=== PATIENT | female | born 1985 | race Two or more races ===

== ENCOUNTER 2020-05-15 15:25 | Emergency (ER) | payer MEDICAID, SELFPAY ==
[2020-05-15 16:12] VITALS: BP 110/67; PULSE 98; RESP 18; TEMP 37; O2SAT 94; BMI 22.8
[2020-05-15 17:22] LABS: Glucose Urine UA NEG (NEG); Leukocyte Esterase Urine NEG (NEG); Nitrite Urine NEG (NEG); Urine Blood NEG (NEG); Urine Ketones NEG (NEG); Urine Protein NEG (NEG-TRACE)
[2020-05-15 17:25] LABS: Appearance Urine CLEAR; Color Urine YELLOW; UPreg QC Valid YES; Urine Pregnancy NEGATIVE (NEGATIVE)
--- NOTE | 2020-05-15 18:51 | ED_ITS ---
HPI - Abdominal Pain General Chief Complaint: Back Pain/Injury Stated Complaint: kidney Pain? Time Seen by Provider: 05/15/20 20:03 Source: patient Mode of arrival: ambulatory Limitations: no limitations History of Present Illness HPI narrative: 35-year-old female treated for kidney infection by [facility] last week given cefdinir presents with bilateral flank pain and fatigue. She states that this pain is worse than when she started the medications, states that she is very tired, feels weak, and has intermittent fevers and chills. MD elicited complaint: flank pain Onset (ago): week(s) (2) Pain Consistency: constant Location: L flank and R flank Severity: moderate Quality: aching and dull Radiation: none Exacerbating factors: movement Relieving factors: nothing Context: recent antibiotic use Associated symptoms: fever and chills Related Data Previous Rx's Medication Instructions Recorded azithromycin [Zithromax TRI-FIONA] See Rx Instructions .ROUTE 05/15/20 .COMPLEX #6 tab dexamethasone 6 mg PO DAILY 10 Days #10 tab 05/15/20 ketorolac 10 mg PO TID PRN 5 Days tab 05/15/20 Allergies Allergy/AdvReac Type Severity Reaction Status Date / Time No Known Allergies Allergy Verified 05/15/20 16:11 Review of Systems Review of Systems Constitutional: positive Fever, positive Chills, positive fatigue, positive Malaise ENT/Mouth: No sore throat, no runny nose Eyes: No Discharge Cardiovascular: No Chest Pain, No SOB Respiratory: No Cough, No Sputum, No Wheezing, No Smoke Exposure, No Dyspnea Gastrointestinal: No Nausea, No Vomiting, No Diarrhea Genitourinary: no irregular bleeding, No Dysuria, No Urinary Frequency, No Hematuria, No Urinary Incontinence, No Urgency, positive bilateral Flank Pain, Musculoskeletal: positive Myalgia Skin: No rash Neuro: No Headache Yes all other systems are reviewed and are negative Physical Exam Vital Signs: Vital Signs: Last Vital Signs Temp 98.6 F 05/15/20 16:12 Pulse 98 05/15/20 16:12 Resp 18 05/15/20 16:12 BP 110/67 05/15/20 16:12 Pulse Ox 94 05/15/20 16:12 Body Mass Index 22.8 Appearance: Alert. Oriented X3. Moderate distress. Eyes: Pupils equal, round and reactive to light. ENT: Pharynx normal. Neck: Normal inspection. Neck supple. CVS: Normal heart rate and rhythm. Pulses normal. Respiratory: No respiratory distress. Breath sounds normal. Abdomen: Soft and diffusely tender, bilateral CVA tenderness Skin: Skin warm and dry. Normal skin color. Normal skin turgor. Extremities: No lower extremity edema. Neuro: No motor deficit. No sensory deficit. Course Course Course Narrative: 35-year-old female with no significant past medical history presents with bilateral flank pain, fatigue, intermittent fevers and chills. Was seen at [facility] last week and given cefdinir for a suspected kidney infection. She states that she did not ever feel well after taking the medica tion and that symptoms have gotten progressively worse over the past week. She has a few days left of her antibiotics. Plan of care is for CBC, Chem 7, lactic, cultures, CT scan of abdomen and pelvi s. CBC and Chem 7 lactic acid are unremarkable. CT scan of abdomen and pelvis indicates normal abdomen and pelvis however shows bilateral lung infiltrates consistent with COVID-19. Patient is afebrile, maintaining O2 saturation at 100% on room air. We will give azithromycin as she has been sick for several weeks and dexamethasone. Patient verbalized understanding of and agrees to plan of care discharge home. MDM - Abdominal Pain Differential Diagnosis Differential diagnosis: Likely abdominal pain, acute appendicitis, calculus of kidney, diverticulitis, gastroenteritis, ovarian cyst and renal colic Medical Records Attestation: I reviewed the patient's medical records. Lab Data Attestation: I reviewed the patient's lab results. Result diagrams: 05/15/20 19:19 05/15/20 19:19 Labs: Lab Results 05/15/20 05/15/20 05/15/20 Range/Units 17:04 19:19 19:19 WBC 7.4 (4.8-10.8) X10*3/uL RBC 4.29 (4.20-5.50) X10*6/uL Hgb 12.9 (12.0-16.0) g/dl Hct 38.3 (37-47) % MCV 89.3 (80-98) fL MCH 30.1 (27.0-33.0) pg MCHC 33.7 (31.0-35.0) g/dl RDW 12.0 (11.0-16.0) % Plt Count 447 H (160-400) X10*3/uL MPV 9.0 L (9.4-12.3) fL Immature Gran % (Auto) 0.1 (0.0-0.4) % Neut % (Auto) 32.2 L (45-73) % Lymph % (Auto) 49.7 H (20-40) % Crosby % (Auto) 11.0 (2-11) % Eos % (Auto) 6.3 H (0-4) % Baso % (Auto) 0.7 (0-2) % Lymph # (Auto) 3.7 (1.2-4.9) X10*3/uL Crosby # (Auto) 0.8 (0.1-1.2) X10*3/uL Eos # (Auto) 0.5 H (0.0-0.4) X10*3/uL Baso # (Auto) 0.1 (0.0-0.2) X10*3/uL Abs Immat Gran (auto) 0.01 (0.00-0.03) X10*3/uL Absolute Neuts (auto) 2.4 (2.0-8.3) X10*3/uL Absolute Nucleated RBC 0.000 (0.0-0.012) X10*3/uL Nucleated RBC % (auto) 0.0 (0.0-0.2) /100WBC PT 14.4 H (10.8-13.0) SEC INR 1.2 H (0.9-1.1) APTT 36.3 (24.1-38.0) SEC Sodium (135-145) mmol/L Potassium (3.3-5.1) mmol/l Chloride (96-108) mmol/L Carbon Dioxide (22-29) mmol/L Anion Gap (12-20) BUN (9-16) mg/dL Creatinine (0.5-1.4) mg/dL Estim Creat Clear Calc Estimated GFR Random Glucose (60-115) mg/dL Lactic Acid (0.5-2.0) mmol/L Calcium (8.4-10.2) mg/dL Magnesium (1.6-2.6) mg/dL Total Bilirubin (0.0-1.0) mg/dL Direct Bilirubin (0.0-0.5) mg/dL AST (5-31) U/L ALT (0-31) U/L Alkaline Phosphatase (39-117) U/L Total Protein (6.5-8.0) g/dL Albumin (3.5-5.0) g/dL Lipase (8-78) U/L Urine Color YELLOW Urine Appearance CLEAR Urine pH 7.0 (5.0-8.0) Ur Specific Lupton 1.020 (1.005-1.025) Urine Protein NEG (NEG-TRACE) MG/DL Urine Glucose (UA) NEG (NEG) MG/DL Urine Ketones NEG (NEG) MG/DL Urine Blood NEG (NEG) Urine Nitrite NEG (NEG) Ur Leukocyte Esterase NEG (NEG) Urine Test NEGATIVE (NEGATIVE) 05/15/20 05/15/20 Range/Units 19:19 19:19 WBC (4.8-10.8) X10*3/uL RBC (4.20-5.50) X10*6/uL Hgb (12.0-16.0) g/dl Hct (37-47) % MCV (80-98) fL MCH (27.0-33.0) pg MCHC (31.0-35.0) g/dl RDW (11.0-16.0) % Plt Count (160-400) X10*3/uL MPV (9.4-12.3) fL Immature Gran % (Auto) (0.0-0.4) % Neut % (Auto) (45-73) % Lymph % (Auto) (20-40) % Crosby % (Auto) (2-11) % Eos % (Auto) (0-4) % Baso % (Auto) (0-2) % Lymph # (Auto) (1.2-4.9) X10*3/uL Crosby # (Auto) (0.1-1.2) X10*3/uL Eos # (Auto) (0.0-0.4) X10*3/uL Baso # (Auto) (0.0-0.2) X10*3/uL Abs Immat Gran (auto) (0.00-0.03) X10*3/uL Absolute Neuts (auto) (2.0-8.3) X10*3/uL Absolute Nucleated RBC (0.0-0.012) X10*3/uL Nucleated RBC % (auto) (0.0-0.2) /100WBC PT (10.8-13.0) SEC INR (0.9-1.1) APTT (24.1-38.0) SEC Sodium 139 (135-145) mmol/L Potassium 4.3 (3.3-5.1) mmol/l Chloride 104 (96-108) mmol/L Carbon Dioxide 27 (22-29) mmol/L Anion Gap 12 (12-20) BUN 10 (9-16) mg/dL Creatinine 0.82 (0.5-1.4) mg/dL Estim Creat Clear Calc 98.4 Estimated GFR > 60 Random Glucose 101 (60-115) mg/dL Lactic Acid 0.7 (0.5-2.0) mmol/L Calcium 9.1 (8.4-10.2) mg/dL Magnesium 2.4 (1.6-2.6) mg/dL Total Bilirubin 0.7 (0.0-1.0) mg/dL Direct Bilirubin 0.3 (0.0-0.5) mg/dL AST 27 (5-31) U/L ALT 31 (0-31) U/L Alkaline Phosphatase 78 (39-117) U/L Total Protein 7.1 (6.5-8.0) g/dL Albumin 4.6 (3.5-5.0) g/dL Lipase 22 (8-78) U/L Urine Color Urine Appearance Urine pH (5.0-8.0) Ur Specific Lupton (1.005-1.025) Urine Protein (NEG-TRACE) MG/DL Urine Glucose (UA) (NEG) MG/DL Urine Ketones (NEG) MG/DL Urine Blood (NEG) Urine Nitrite (NEG) Ur Leukocyte Esterase (NEG) Urine Test (NEGATIVE) Imaging Data CT scan - abdomen: Attestation: I personally reviewed and interpreted this imaging study as lna gonzalez: Radiologist's impression: EXAMINATION: CT ABDOMEN AND PELVIS WITHOUT CONTRAST CLINICAL INFORMATION: Left flank pain COMPARISON: Pelvic ultrasound 10/27/2012 TECHNIQUE: Multidetector volumetric imaging was performed from the superior aspect of the liver through the pubic symphysis. Sagittal and coronal reformatted images were obtained on the technologist's workstation. This CT examination was performed using dose optimization techniques as appropriate, variously including the following: *Automated exposure control *Adjustment of mA and/or kV according to patient size (this includes techniques or standardized protocols for targeted exams where dose is matched to indication/reason for exam; i.e. extremities or head) *Use of iterative reconstruction technique DLP: 485 mGy-cm FINDINGS: LUNG BASES: Some minimal peripheral groundglass infiltrates are present at both lung bases. LIVER, GALLBLADDER, AND BILIARY TREE: The liver is normal in size, shape, and attenuation. No focal hepatic lesion or biliary ductal dilatation is present. The gallbladder is unremarkable with no evidence of radiopaque gallstones, gallbladder wall thickening, or obvious pericholecystic inflammatory changes. PANCREAS: Unremarkable. SPLEEN: Unremarkable. ADRENAL GLANDS: Unremarkable. KIDNEYS AND URETERS: The kidneys are normal in size, shape, and attenuation. No hydronephrosis, hydroureter, or calculi seen. No perinephric stranding. BLADDER: Only partially filled but unremarkable GASTROINTESTINAL TRACT: The small and large bowel are unremarkable. The appendix is unremarkable. ABDOMINAL WALL: No significant hernia is appreciated. LYMPH NODES: No retroperitoneal lymphadenopathy is seen. Multiple small lymph nodes are seen in the in the root of the mesentery near the cecum the largest measuring 1.3 x 1.2 x 0.7 cm. Bilateral small inguinal nodes are present. VASCULAR: Unremarkable. PELVIC VISCERA: An anteverted uterus is present. Some calcifications are seen in the cervix and lower uterine segment which could be secondary to fibroids or scarring from prior IUD. OSSEOUS STRUCTURES: Unremarkable. CT/CT abdomen pelvis wo con IMPRESSION: 1. A cause for the patient's left flank pain has not been found. 2. Peripheral groundglass infiltrates are seen at both lung bases. This can be seen with Covid 19 infection. Discharge Plan Discharge Clinical Impression: Flank pain, COVID-19 Patient Disposition: Home, Self-Care Instructions: Flank Pain (ED), COVID-19 (Coronavirus Disease 2019) (ED) Additional Instructions: You were evaluated for flank pain. CT scan of the abdomen pelvis indicate ground-glass opacities in bilateral lungs consistent with COVID-19. We prescribed dexamethasone, please take this for 10 days. We prescribed azithromycin for bacterial pneumonia. Please note that antibiotics do not work against viruses, we are giving you this medication to prevent bacterial pneumonia as you have had this illness for several weeks. Please continue the medications given to you by your prior providers. Maintain social isolation per State and Federal guidelines. It is your responsibility to maintain these guidelines. Thank you for choosing this emergency department for evaluation. Please follow-up with primary care physician as needed. Return to the emergency d epartment for any new, concerning, or worsening symptoms. Prescriptions: New dexamethasone 6 mg tablet 6 mg PO DAILY 10 Days Qty: 10 RF: 0 azithromycin [Zithromax TRI-FIONA] 500 mg tablet See Rx Instructions .ROUTE .COMPLEX Qty: 6 RF: 0 ketorolac 10 mg tablet 10 mg PO TID PRN (Reason: pain) 5 Days RF: 0 Interventions: ED Discharge Assessment Last Done: 05/15/20 21:29 Discharge Date/Time: 05/15/20 21:34 [facility] Past Medical History Attestation statement: The following information was validated with the patient. Surgical History No history of previous surgery Family History Family History Mother No problems noted. Father No problems noted. Social History Social History Alcohol intake: never Smoking Status: Never smoker Use of substances other than those prescribed or required for medical reasons: No Advance Directives: No Advance Directives Information Provided: No
--- NOTE | 2020-05-15 18:52 | ECG_ITS ---
Test Reason : left flank pain Blood Pressure : / mmHG Vent. Rate : 073 BPM Atrial Rate : 073 BPM P-R Int : 152 ms QRS Dur : 080 ms QT Int : 390 ms P-R-T Axes : 038 014 017 degrees QTc Int : 429 ms Normal sinus rhythm Nonspecific T wave abnormality Abnormal ECG No previous ECGs available Referred By: Kelsea Reddy Electronically Signed By:Blayne Ya
[2020-05-15 19:27] LABS: MANUAL DIFF FLAG NO
[2020-05-15] MEDS: ondansetron HCL 4 MG/2 ML VIAL IVPUSH (19:27)
[2020-05-15] MEDS: 0.9 % Sodium Chloride 1,000 ML 999 ML IVCONT (19:27)
[2020-05-15] MEDS: Morphine Sulfate 4 MG/ML CARTRIDGE IVPUSH (19:27)
[2020-05-15 19:33] LABS: Basophils Absolute Auto 0.1 X10*3/uL (0.0-0.2); Basophils Percent Auto 0.7 % (0-2); Eosinophils Absolute Auto 0.5 X10*3/uL (0.0-0.4); Eosinophils Percent Auto 6.3 % (0-4); Hematocrit 38.3 % (37-47); Hemoglobin 12.9 g/dl (12.0-16.0); Imm Gran Abs Auto 0.01 X10*3/uL (0.00-0.03); Imm Gran Pct Auto 0.1 % (0.0-0.4); Lymphocytes Absolute Auto 3.7 X10*3/uL (1.2-4.9); Lymphocytes Percent Auto 49.7 % (20-40); Mean Corpuscular HGB Conc 33.7 g/dl (31.0-35.0); Mean Corpuscular Hemoglobin 30.1 pg (27.0-33.0); Mean Corpuscular Volume 89.3 fL (80-98); Monocytes Absolute Auto 0.8 X10*3/uL (0.1-1.2); Neutrophils Absolute Auto 2.4 X10*3/uL (2.0-8.3); Neutrophils Percent Auto 32.2 % (45-73); Platelet Count 447 X10*3/uL (160-400); Red Blood Count 4.29 X10*6/uL (4.20-5.50); White Blood Count 7.4 X10*3/uL (4.8-10.8)
[2020-05-15 19:34] LABS: INTERNATIONAL NORM RATIO 1.2 (0.9-1.1); Prothrombin Time 14.4 SEC (10.8-13.0)
[2020-05-15 19:37] LABS: Partial Thromboplastin Time 36.3 SEC (24.1-38.0)
[2020-05-15 19:46] LABS: Lactic Acid 0.7 mmol/L (0.5-2.0)
[2020-05-15 19:50] LABS: Alanine Aminotransferase 31 U/L (0-31); Albumin Level 4.6 g/dL (3.5-5.0); Alkaline Phosphatase 78 U/L (39-117); Anion Gap 12 (12-20); Aspartate Amino Transferase 27 U/L (5-31); Bilirubin Direct 0.3 mg/dL (0.0-0.5); Bilirubin Total 0.7 mg/dL (0.0-1.0); Blood Urea Nitrogen 10 mg/dL (9-16); Calcium 9.1 mg/dL (8.4-10.2); Carbon Dioxide 27 mmol/L (22-29); Chloride 104 mmol/L (96-108); Creatinine Clr Calc Pharmacy 98.4; Estimated Glomerular Filt Rate > 60; Glucose Random 101 mg/dL (60-115); Lipase 22 U/L (8-78); Magnesium 2.4 mg/dL (1.6-2.6); Potassium 4.3 mmol/l (3.3-5.1); Sodium 139 mmol/L (135-145); Total Protein 7.1 g/dL (6.5-8.0)
[2020-05-15] MEDS: Ketorolac Tromethamine 30 MG/ML VIAL IVPUSH (20:15)
[2020-05-15] MEDS: Azithromycin 500 MG TABLET PO (21:28)
[2020-05-15] MEDS: dexAMETHasone 6 MG TABLET PO (21:28)
== END 2020-05-15 21:34 | disposition home or self-care (01) ==
PROVIDERS: Nurse Practitioner Family; Emergency Provider Emergency Medicine; PCP Internal Medicine
DX: U07.1 COVID-19 (principal); R10.9 Unspecified abdominal pain
CPT/HCPCS: 36415; 74176; 80048; 80076; 81003; 81025; 83605; 83690; 83735; 85025; 85610; 85730; 87040; 93005; 96361; 96374; 96375; 99284; J1885; J2270; J2405; J8540

== ENCOUNTER 2020-05-31 15:40 | Outpatient (REF) | payer OTHER, SELFPAY ==
--- NOTE | 2020-05-31 15:47 | XR_ITS ---
EXAMINATION: XR CHEST CLINICAL INFORMATION: Covid 19 infection COMPARISON: Previous chest x-ray July 2014 TECHNIQUE: 2 views of the chest were obtained. FINDINGS: No significant abnormality is noted involving the heart, lungs, mediastinum, bony thorax or soft tissues. XR/XR chest 2V IMPRESSION: Unremarkable examination.
== END 2020-05-31 15:41 | disposition home or self-care (01) ==
LOC: HO.XRAY 15:40
PROVIDERS: Visit Provider Internal Medicine
DX: U07.1 COVID-19 (principal)
CPT/HCPCS: 71046

== ENCOUNTER → 2020-09-07 11:00 | Outpatient (BNVA) | payer OTHER, SELFPAY | PROVIDERS: PCP Internal Medicine; Visit Provider Advanced Practice Midwife ==

== ENCOUNTER → 2021-12-10 11:11 | Outpatient (BNVA) | payer OTHER, SELFPAY | PROVIDERS: Visit Provider Nurse Practitioner Psychiatric/Mental Health | DX: Z51.81 Encounter for therapeutic drug level monitoring (principal); F11.20 Opioid dependence, uncomplicated | CPT/HCPCS: 80305; 99212 ==

== ENCOUNTER → 2021-12-27 15:41 | Outpatient (BNVA) | payer OTHER, SELFPAY | PROVIDERS: PCP Internal Medicine; Visit Provider Nurse Practitioner Psychiatric/Mental Health | DX: Z51.81 Encounter for therapeutic drug level monitoring (principal); F11.20 Opioid dependence, uncomplicated | CPT/HCPCS: 80305; 80307; 80364; 80365; 99212 ==

== ENCOUNTER 2021-12-27 17:15 | Outpatient (REF) | payer OTHER, SELFPAY ==
[2021-12-27 17:43] LABS: Fentanyl, urine POSITIVE (Not Detect)
[2022-01-03 08:21] LABS: Codeine, Ur NEGATIVE; Hydrocodone, Ur NEGATIVE; Hydromorphone, Ur NEGATIVE; Morphine, Ur NEGATIVE; Oxycodone, Ur NEGATIVE
[2022-01-03 08:22] LABS: Norhydrocodone, Ur NEGATIVE; Noroxycodone, Ur NEGATIVE; Oxymorphone, Ur NEGATIVE
== END 2021-12-27 17:16 | disposition home or self-care (01) ==
LOC: HO.LNP 17:15
PROVIDERS: Visit Provider Nurse Practitioner Psychiatric/Mental Health
DX: Z13.89 Encounter for screening for other disorder (principal)
CPT/HCPCS: 80307; 80364; 80365

== ENCOUNTER → 2022-01-07 15:59 | Outpatient (BNVA) | payer OTHER, SELFPAY | PROVIDERS: PCP Internal Medicine; Visit Provider Nurse Practitioner Psychiatric/Mental Health | DX: Z51.81 Encounter for therapeutic drug level monitoring (principal); F11.20 Opioid dependence, uncomplicated | CPT/HCPCS: 80305; 99212 ==

== ENCOUNTER → 2022-01-15 15:25 | Outpatient (BNVA) | payer OTHER, SELFPAY | PROVIDERS: PCP Internal Medicine; Visit Provider Nurse Practitioner Psychiatric/Mental Health | DX: F11.20 Opioid dependence, uncomplicated (principal); Z51.81 Encounter for therapeutic drug level monitoring; Z79.899 Other long term (current) drug therapy | CPT/HCPCS: 80305; 99212 ==

== ENCOUNTER 2022-01-31 15:43 | Outpatient (REF) | payer OTHER, SELFPAY ==
[2022-02-06 07:35] LABS: Naloxone NEGATIVE
[2022-02-06 07:39] LABS: Buprenorphine 12; Norbuprenorphine 76
== END 2022-01-31 15:44 | disposition home or self-care (01) ==
LOC: HO.LAB 15:43
PROVIDERS: Visit Provider Nurse Practitioner Psychiatric/Mental Health
DX: F11.20 Opioid dependence, uncomplicated (principal); Z51.81 Encounter for therapeutic drug level monitoring; Z79.899 Other long term (current) drug therapy
CPT/HCPCS: 80305; 80348; 80362; 99212

== ENCOUNTER → 2022-02-07 16:02 | Outpatient (BNVA) | payer OTHER, SELFPAY | PROVIDERS: PCP Internal Medicine; Visit Provider Nurse Practitioner Psychiatric/Mental Health | DX: Z51.81 Encounter for therapeutic drug level monitoring (principal); F11.20 Opioid dependence, uncomplicated | CPT/HCPCS: 80305; 99212 ==

== ENCOUNTER → 2022-02-18 15:25 | Outpatient (BNVA) | payer OTHER, SELFPAY | PROVIDERS: PCP Internal Medicine; Visit Provider Nurse Practitioner Psychiatric/Mental Health | DX: F11.20 Opioid dependence, uncomplicated (principal); Z51.81 Encounter for therapeutic drug level monitoring; Z79.899 Other long term (current) drug therapy | CPT/HCPCS: 80305; 99212 ==

== ENCOUNTER 2022-02-26 15:33 | Outpatient (REF) | payer OTHER, SELFPAY ==
[2022-02-26 15:43] LABS: MANUAL DIFF FLAG NO
[2022-02-26 16:51] LABS: Basophils Absolute Auto 0.1 X10*3/uL (0.0-0.2); Eosinophils Absolute Auto 0.9 X10*3/uL (0.0-0.4); Eosinophils Percent Auto 9.9 % (0-4); Hematocrit 32.4 % (37.0-47.0); Hemoglobin 10.8 g/dl (12.0-16.0); Imm Gran Abs Auto 0.01 X10*3/uL (0.00-0.03); Imm Gran Pct Auto 0.1 % (0.0-0.4); Lymphocytes Absolute Auto 3.2 X10*3/uL (1.2-4.9); Lymphocytes Percent Auto 36.2 % (20-40); Mean Corpuscular HGB Conc 33.3 g/dl (31.0-35.0); Mean Corpuscular Hemoglobin 28.6 pg (27.0-33.0); Mean Corpuscular Volume 85.9 fL (80.0-98.0); Monocytes Absolute Auto 0.7 X10*3/uL (0.1-1.2); Monocytes Percent Auto 7.9 % (2-11); Neutrophils Absolute Auto 3.9 x10*3/uL (2.0-8.3); Neutrophils Percent Auto 44.9 % (45-73); Platelet Count 364 X10*3/uL (160-400); Red Blood Count 3.77 X10*6/uL (4.20-5.50); Red Cell Distribution Width 13.5 % (11.0-16.0); White Blood Count 8.8 X10*3/uL (4.8-10.8)
[2022-02-26 17:27] LABS: Albumin Level 4.2 g/dL (3.5-5.0); Anion Gap 14 (12-20); Bilirubin Direct < 0.2 mg/dL (0.0-0.5); Bilirubin Total 0.5 mg/dL (0.0-1.0); Blood Urea Nitrogen 10 mg/dL (9-16); Carbon Dioxide 23 mmol/L (22-29); Chloride 106 mmol/L (96-108); Cholesterol 206 mg/dL; Estimated Glomerular Filt Rate > 60; Glucose Fasting 91 mg/dL (60-99); HDL Cholesterol 42 mg/dL; LDL Cholesterol Calculated 144 mg/dl; Potassium 4.3 mmol/L (3.3-5.1); Sodium 139 mmol/L (135-145); Total Protein 6.5 g/dL (6.5-8.0); Triglycerides 104 mg/dL
[2022-02-26 17:41] LABS: Alanine Aminotransferase 75 U/L (0-31); Alkaline Phosphatase 69 U/L (39-117); Aspartate Amino Transferase 197 U/L (5-31)
[2022-02-26 17:46] LABS: Thyroid Stimulating Hormone 1.69 uIU/mL (0.32-4.0)
[2022-02-27 08:35] LABS: HBS Num1 270.24 mIU/mL (0-7.99); HBc Num1 0.12 S/CO (0.00-0.79); HBsAGNum1 0.18 S/CO (0.00-0.99); HIV AB/AG Nonreactive (Nonreactive); HIV Num 1 0.06 S/CO (0.00-0.99); Hepatitis B Core Antibody Nonreactive (Nonreactive); Hepatitis B Surface Antigen Negative (Negative); ~HepC Num1 0.08 S/CO (0.00-0.79); ~Hepatitis B Surface Antibody REACTIVE (Nonreactive); ~Hepatitis C Antibody Nonreactive (Nonreactive)
[2022-02-28 07:48] LABS: Hepatitis A Antibody IgM 0.17 Index (0-0.79); ~Hepatitis A Antibody IgM Nonreactive (Nonreactive)
== END 2022-02-26 15:34 | disposition home or self-care (01) ==
LOC: HO.LAB 15:33
PROVIDERS: Internal Medicine; Nurse Practitioner Psychiatric/Mental Health; Visit Provider Nurse Practitioner Psychiatric/Mental Health
DX: Z00.00 Encounter for general adult medical examination without abnormal findings (principal); Z11.4 Encounter for screening for human immunodeficiency virus [HIV]; Z13.0 Encounter for screening for diseases of the blood and blood-forming organs and certain disorders involving the immune mechanism; F11.90 Opioid use, unspecified, uncomplicated; Z79.899 Other long term (current) drug therapy
CPT/HCPCS: 36415; 80053; 80061; 80076; 82248; 84443; 85025; 86704; 86706; 86709; 86803; 87340; 87389

== ENCOUNTER 2022-02-28 13:37 | Outpatient (REF) | payer OTHER, SELFPAY ==
[2022-03-10 08:04] LABS: Buprenorphine 88; Naloxone 215; Norbuprenorphine 434
== END 2022-02-28 13:38 | disposition home or self-care (01) ==
LOC: HO.LAB 13:37
PROVIDERS: PCP Internal Medicine; Visit Provider Nurse Practitioner Psychiatric/Mental Health
DX: F11.20 Opioid dependence, uncomplicated (principal); Z51.81 Encounter for therapeutic drug level monitoring
CPT/HCPCS: 80305; 80348; 80362; 99212

== ENCOUNTER 2022-03-12 15:13 | Outpatient (REF) | payer OTHER, SELFPAY ==
[2022-03-12 16:12] LABS: Alanine Aminotransferase 17 U/L (0-31); Albumin Level 4.1 g/dL (3.5-5.0); Alkaline Phosphatase 72 U/L (39-117); Aspartate Amino Transferase 18 U/L (5-31); Bilirubin Direct 0.2 mg/dL (0.0-0.5); Bilirubin Total 0.5 mg/dL (0.0-1.0); Total Protein 6.3 g/dL (6.5-8.0)
== END 2022-03-12 15:14 | disposition home or self-care (01) ==
LOC: HO.LAB 15:13
PROVIDERS: Visit Provider Nurse Practitioner Psychiatric/Mental Health
DX: F11.20 Opioid dependence, uncomplicated (principal); Z51.81 Encounter for therapeutic drug level monitoring; Z79.899 Other long term (current) drug therapy
CPT/HCPCS: 36415; 80076; 80305; 99212

== ENCOUNTER → 2022-04-07 14:15 | Outpatient (BNVA) | payer OTHER, SELFPAY | PROVIDERS: PCP Internal Medicine; Visit Provider Nurse Practitioner Psychiatric/Mental Health | DX: Z51.81 Encounter for therapeutic drug level monitoring (principal); F11.20 Opioid dependence, uncomplicated; Z32.02 Encounter for pregnancy test, result negative | CPT/HCPCS: 80305; 81025; 96372; 99212 ==

== ENCOUNTER 2022-07-24 15:18 | Outpatient (REF) | payer OTHER, SELFPAY ==
[2022-07-25 11:59] LABS: CT PCR NOT DETECTED (Not Detect.); NG PCR NOT DETECTED (Not Detect.)
== END 2022-07-24 15:19 | disposition home or self-care (01) ==
LOC: HO.LAB 15:18
PROVIDERS: PCP Internal Medicine; Visit Provider Advanced Practice Midwife
DX: Z01.419 Encounter for gynecological examination (general) (routine) without abnormal findings (principal); R30.0 Dysuria; Z20.2 Contact with and (suspected) exposure to infections with a predominantly sexual mode of transmission
CPT/HCPCS: 0353U; 81003; 81025; 87086; 87088; 87186

== ENCOUNTER 2022-07-24 15:53 | Outpatient (REF) | payer OTHER, SELFPAY ==
[2022-07-30 06:09] LABS: HPV mRNA E6/E7 rflx Not Detected (Not Detected)
== END 2022-07-24 15:54 | disposition home or self-care (01) ==
LOC: HO.LNP 15:53
PROVIDERS: Visit Provider Advanced Practice Midwife
DX: Z01.419 Encounter for gynecological examination (general) (routine) without abnormal findings (principal); Z11.51 Encounter for screening for human papillomavirus (HPV)
CPT/HCPCS: 87624; 88142